=== PATIENT | female | born 1955 | race African-American/Black ===

== ENCOUNTER 2020-04-17 14:12 | Emergency (ER) | payer MEDICARE ==
[~2020-04-17] VITALS: Ht 170.2 cm; Wt 87.0 kg
[2020-04-17] MEDS ORDERED: HYDR25TA PO (14:27)
[2020-04-17] MEDS ORDERED: SIMV-43 PO (14:27)
[2020-04-17] MEDS ORDERED: FLUO1POW12 MC (14:27)
[2020-04-17] MEDS ORDERED: LEVO25TA7 PO (14:27)
[2020-04-17] MEDS ORDERED: METH2.5T PO (14:27)
[2020-04-17] MEDS ORDERED: AMLO5TAB88 PO (14:27)
[2020-04-17] MEDS ORDERED: IBUPROFEN 600MG TABLET PO STA (16:21)
[2020-04-17 17:00] VITALS: BP 158/77
== END 2020-04-17 18:18 | disposition home or self-care (01) ==
LOC: ER 14:12
DX: M54.31 Sciatica, right side (principal); I10 Essential (primary) hypertension; E03.9 Hypothyroidism, unspecified; E78.00 Pure hypercholesterolemia, unspecified; D57.3 Sickle-cell trait
CPT/HCPCS: 74176; 99284

== ENCOUNTER 2021-11-05 14:56 | Emergency (ER) | payer MEDICARE, OTHER ==
[~2021-11-05] VITALS: Ht 172.7 cm; Wt 90.0 kg
[~2021-11-05 14:56] MED LIST: AMLO5TAB88 PO; FLUO1POW12 MC; LEVO25TA7 PO; SIMV-43 PO
[2021-11-05] MEDS ORDERED: MAGNESIUM/ALUMINUM HYDROXIDE/SIMETHICONE 30ML UDC PO STA (15:38)
[2021-11-05] MEDS ORDERED: VISCOUS LIDOCAINE 2% 15 ML UDC PO STA (15:38)
[2021-11-05] MEDS ORDERED: ONDANSETRON 4MG ODT PO ONE (15:45)
[2021-11-05] MEDS ORDERED: FAMOTIDINE 20MG TABLET PO ONE (15:45)
[2021-11-05 16:04] LABS: BASOPHILS % 0.3 % (0.0-2.0); EOSINOPHILS % 0.4 % (0.0-5.0); HEMATOCRIT. 33.6 % (36.0-48.0); HEMOGLOBIN. 11.1 g/dL (12.0-16.0); MEAN CORPUSCULAR HEMOGLOBIN 24.5 pg (28.0-32.0); MONOCYTES % 6.2 % (2.0-8.0); NEUTROPHILS % 78.1 % (40.0-76.0); PLATELET 297 x1000/uL (130-400); RED BLOOD CELL COUNT 4.54 mill/uL (4.2-5.4); RED CELL DISTRIBUTION WIDTH 16.5 % (11.6-14.6)
[2021-11-05 16:13] LABS: CHLORIDE 105 mEq/L (98-107)
[2021-11-05] MEDS ORDERED: PROT40 MT (16:24)
[2021-11-05 16:58] VITALS: BP 118/61
[2021-11-05 17:05] LABS: CLARITY URINE CLEAR (CLEAR); COLOR URINE YELLOW (YELLOW); KETONES URINE NEGATIVE (NEGATIVE); LEUKOCYTE ESTERASE URINE 2+ (NEGATIVE); NITRITE URINE POSITIVE (NEGATIVE); OCCULT BLOOD URINE NEGATIVE (NEGATIVE); PH URINE 5.5 (4.5-8.0); PROTEIN URINE TRACE (NEGATIVE); SPECIFIC GRAVITY URINE 1.015 (1.005-1.030); UROBILINOGEN URINE 0.2 E.U./dL (0.2-1.0)
[2021-11-05] MEDS ORDERED: CEPH500T MT (17:24)
== END 2021-11-05 17:00 | disposition home or self-care (01) ==
LOC: ER 14:56
DX: K21.9 Gastro-esophageal reflux disease without esophagitis (principal); I10 Essential (primary) hypertension; I49.9 Cardiac arrhythmia, unspecified; E78.00 Pure hypercholesterolemia, unspecified; E03.9 Hypothyroidism, unspecified
CPT/HCPCS: 36415; 80053; 81003; 83690; 85025; 87077; 87086; 87186; 99284; Q0162

== ENCOUNTER 2021-11-18 16:08 | Emergency (ER) | payer MEDICARE ==
[~2021-11-18] VITALS: Ht 172.7 cm; Wt 91.0 kg
[~2021-11-18 16:08] MED LIST changes: +CEPH500T MT; +PROT40 MT
[2021-11-18 18:58] VITALS: BP 127/75
== END 2021-11-18 18:59 | disposition home or self-care (01) ==
LOC: ER 16:08
DX: S00.03XA Contusion of scalp, initial encounter (principal); E78.00 Pure hypercholesterolemia, unspecified; I10 Essential (primary) hypertension; Z98.890 Other specified postprocedural states; Z86.39 Personal history of other endocrine, nutritional and metabolic disease; W18.12XA Fall from or off toilet with subsequent striking against object, initial encounter; Y93.89 Activity, other specified; Y92.89 Other specified places as the place of occurrence of the external cause; Y99.8 Other external cause status
CPT/HCPCS: 73110; 99284

== ENCOUNTER 2023-04-15 10:00 | Emergency (ER) | payer OTHER ==
[~2023-04-15] VITALS: Ht 172.7 cm; Wt 93.0 kg
[2023-04-15 10:14] VITALS: BP 144/77; PULSE 95; RESP 20; TEMP 98.2; O2SAT 100
[2023-04-15] MEDS ORDERED: ONDANSETRON HCL 4MG/2ML INJ IV STA (10:22)
[2023-04-15] MEDS ORDERED: MAGNESIUM/ALUMINUM HYDROXIDE/SIMETHICONE 30ML UDC PO STA (10:22)
[2023-04-15] MEDS ORDERED: FAMOTIDINE 20MG/2ML VIAL IV STA (10:22)
[2023-04-15] MEDS ORDERED: SODIUM CHLORIDE 0.9% 1,000 ML IV ONE (10:30)
[2023-04-15 10:58] LABS: BASOPHILS % 0.5 % (0.0-2.0); EOSINOPHILS % 0.5 % (0.0-5.0); HEMATOCRIT. 35.8 % (36.0-48.0); HEMOGLOBIN. 11.8 g/dL (12.0-16.0); LYMPHOCYTES % 16.4 % (20.0-50.0); MEAN CORPUSCULAR HEMOGLOBIN 24.1 pg (28.0-32.0); MEAN CORPUSCULAR VOLUME 73.1 fL (81.0-99.0); MEAN PLATELET VOLUME 8.2 fl (7.4-10.4); MONOCYTES % 5.7 % (2.0-8.0); NEUTROPHILS % 76.9 % (40.0-76.0); PLATELET 359 x1000/uL (130-400); RED CELL DISTRIBUTION WIDTH 17.2 % (11.6-14.6)
[2023-04-15 11:06] LABS: CHLORIDE 102 mEq/L (98-107)
[2023-04-15] MEDS ORDERED: MAGNESIUM/ALUMINUM HYDROXIDE/SIMETHICONE 30ML UDC PO ONE (11:30)
[2023-04-15] MEDS ORDERED: FAMOTIDINE 20MG TABLET PO ONE (11:30)
[2023-04-15 12:44] LABS: CLARITY URINE CLEAR (CLEAR); COLOR URINE YELLOW (YELLOW); KETONES URINE TRACE (NEGATIVE); LEUKOCYTE ESTERASE URINE NEGATIVE (NEGATIVE); NITRITE URINE NEGATIVE (NEGATIVE); OCCULT BLOOD URINE NEGATIVE (NEGATIVE); PH URINE 6.5 (4.5-8.0); PROTEIN URINE NEGATIVE (NEGATIVE); SPECIFIC GRAVITY URINE 1.017 (1.005-1.030)
[2023-04-15] MEDS ORDERED: POLY17PO3 MT (13:24)
[2023-04-15] MEDS ORDERED: FAMO-135 MT (13:24)
== END 2023-04-15 13:50 | disposition home or self-care (01) ==
LOC: ER 10:00
DX: K20.90 Esophagitis, unspecified without bleeding (principal); K59.00 Constipation, unspecified; I10 Essential (primary) hypertension; E78.00 Pure hypercholesterolemia, unspecified; Z98.890 Other specified postprocedural states; Z86.39 Personal history of other endocrine, nutritional and metabolic disease
CPT/HCPCS: 99284; 74176; 80053; 81003; 83690; 85025; 36415; J7030

== ENCOUNTER 2024-01-14 10:52 | Emergency (ER) | payer OTHER ==
[~2024-01-14] VITALS: Ht 170.2 cm; Wt 86.0 kg
[~2024-01-14 10:52] MED LIST changes: +FAMO-135 MT; +POLY17PO3 MT
[2024-01-14 11:09] VITALS: O2SAT 98
[2024-01-14 11:48] LABS: BASOPHILS % 0.4 % (0.0-2.0); DIFFERENTIAL COMMENT 0; EOSINOPHILS % 0.9 % (0.0-5.0); HEMATOCRIT. 34.4 % (36.0-48.0); HEMOGLOBIN. 11.2 g/dL (12.0-16.0); LYMPHOCYTES % 18.8 % (20.0-50.0); MEAN CORPUSCULAR HEMOGLOBIN 24.2 pg (28.0-32.0); MEAN CORPUSCULAR HGB CONC 32.6 g/dL (31.0-37.0); MEAN CORPUSCULAR VOLUME 74.1 fL (81.0-99.0); MEAN PLATELET VOLUME 8.4 fl (7.4-10.4); MONOCYTES % 6.6 % (2.0-8.0); NEUTROPHILS % 73.3 % (40.0-76.0); PLATELET 327 x1000/uL (130-400); RED BLOOD CELL COUNT 4.64 mill/uL (4.2-5.4); RED CELL DISTRIBUTION WIDTH 17.6 % (11.6-14.6); WHITE BLOOD COUNT 9.3 x1000/uL (4.5-11.0)
[2024-01-14 12:10] LABS: CHLORIDE 102 mEq/L (98-107); POTASSIUM 3.1 mEq/L (3.5-5.1); SODIUM 139 mEq/L (136-145)
[2024-01-14 12:11] LABS: CALCIUM 9.4 mg/dL (8.7-10.4); CARBON DIOXIDE 29 mEq/L (21-32)
[2024-01-14 12:16] LABS: CREATININE 0.6 mg/dL (0.6-1.0); GLUCOSE 102 mg/dL (70-105)
[2024-01-14 12:17] LABS: TROPONIN I HIGH SENSITIVITY 7 ng/L (3.0-34)
[2024-01-14 12:21] LABS: UREA NITROGEN BLOOD < 5 mg/dL (9-23)
[2024-01-14] MEDS: ACETAMINOPHEN 325MG TABLET PO ONE (13:15)
[2024-01-14] MEDS: ONDANSETRON 4MG ODT PO ONE (13:15)
[2024-01-14 14:02] LABS: CARBON DIOXIDE 33 mEq/L (21-32); CHLORIDE 102 mEq/L (98-107); POTASSIUM 3.4 mEq/L (3.5-5.1); SODIUM 140 mEq/L (136-145)
[2024-01-14 14:03] LABS: CALCIUM 9.4 mg/dL (8.7-10.4)
[2024-01-14 14:08] LABS: CREATININE 0.6 mg/dL (0.6-1.0); GLUCOSE 99 mg/dL (70-105)
[2024-01-14 14:10] LABS: ALANINE AMINOTRANSFERASE 10 IU/L (10-49); ALBUMIN 4.4 g/dL (3.2-4.8); ASPARTATE AMINOTRANSFERASE 20 IU/L (<34); BILIRUBIN TOTAL 0.5 mg/dL (0.1-1.0)
[2024-01-14 14:11] LABS: UREA NITROGEN BLOOD < 5 mg/dL (9-23)
[2024-01-14 15:00] VITALS: BP 127/86; PULSE 91; RESP 17; TEMP 98.5
== END 2024-01-14 16:45 | disposition home or self-care (01) ==
LOC: ER 10:52
DX: D25.9 Leiomyoma of uterus, unspecified (principal); K21.9 Gastro-esophageal reflux disease without esophagitis; E78.00 Pure hypercholesterolemia, unspecified; I10 Essential (primary) hypertension; E03.9 Hypothyroidism, unspecified; Z98.890 Other specified postprocedural states; M35.00 Sjogren syndrome, unspecified
CPT/HCPCS: 99285; 74176; 71045; 80053; 83690; 85025; 84484; 36415; 93005; 80048; Q0162